=== PATIENT | female | born 2005 | race Caucasian/White ===

== ENCOUNTER 2023-01-20 04:29 | Inpatient (IN) ==
[2023-01-20 05:43] LABS: Alcohol, S 300 mg/dL (<13)
[2023-01-20] MEDS ORDERED: Droperidol 5 MG/2 ML 2 ML VIAL IM ONE (05:49)
[2023-01-20 05:50] LABS: HCG Pregnancy < 0.60 mIU/mL
[2023-01-20 06:11] LABS: Urine Benzodiazepine Screen None Detected (None Detect); Urine Cannabinoids Screen None Detected (None Detect); Urine Opiates Screen None Detected (None Detect)
[2023-01-20] MEDS ORDERED: Al Hydrox/Mg Hydrox/Simet LIQ 30 ML UDC PO PRN (22:30)
[2023-01-21 08:36] LABS: HDL Cholesterol 68.5 mg/dL
[2023-01-21 09:47] LABS: ABS Eosinophils 0.1 10^3/ul (0-0.6); ABS Lymphocytes 2.3 10^3/ul (1.0-4.8); ABS Monocytes 0.5 10^3/ul (0-0.8); ABS Neutrophils 4.4 10^3/ul (1.5-7.7); Eosinophil % 1.2 %; Hematocrit 47 % (35-47); Hemoglobin 16.1 g/dL (12.0-16.0); Lymphocyte % 31.2 %; Mean Corpuscular HGB Conc 34 g/dL (31-36); Mean Corpuscular Hemoglobin 33 pg (27-31); Mean Corpuscular Volume 96 fL (80-97); Mean Platelet Volume 8.2 fL (7.4-10.4); Nucleated Red Blood Cells % 0.2; Platelet Count 309 10^3/uL (150-450); Red Cell Distribution Width 13 % (10-15); White Blood Count 7.3 10^3/uL (3.5-10.8)
[2023-01-21 09:50] LABS: Albumin 5.1 g/dL (3.2-5.2); Albumin/Globulin Ratio 1.6 (1-3); Calcium 10.5 mg/dL (8.6-10.3); Creatinine, Serum 0.84 mg/dL (0.51-0.95); Globulin 3.1 g/dL (2-4); Potassium 4.1 mmol/L (3.5-5.0); Total Protein 8.2 g/dL (6.4-8.9); eGFR CKD-EPI 102.6 (>60)
[2023-01-21] MEDS: Vitamin THERAPEUTIC TAB PO SCH (11:15)
[2023-01-21 21:28] VITALS: BP 133/92
[2023-01-22] MEDS: Vitamin THERAPEUTIC TAB PO SCH (10:43)
== END 2023-01-22 13:12 | disposition home or self-care (01) | DRG 885 ==
LOC: ED 04:29 → EDHOLD 21:30 → BSU 01-21 00:36
PROVIDERS: ADMIT Psychiatry & Neurology Psychiatry; ATTEND Psychiatry & Neurology Psychiatry